=== PATIENT | female | born 1945 | race Asian ===

== ENCOUNTER 2017-07-26 20:35 | Inpatient (IN) | payer MEDICARE, MEDICAID ==
[~2017-07-26] VITALS: Ht 157.5 cm; Wt 54.4 kg
[2017-07-26 20:50] VITALS: BP 169/82
[2017-07-26 21:23] LABS: BASOPHILS % (AUTO) 0.9 % (0.0-2.0); EOSINOPHILS % (AUTO) 0.3 % (0.0-3.0); LYMPHOCYTES % (AUTO) 16.4 % (20.0-45.0); MEAN CORPUSCULAR HEMOGLOBIN 33.6 PG (27.0-31.0); MEAN CORPUSCULAR HGB CONC 34.3 G/DL (32.0-36.0); MEAN CORPUSCULAR VOLUME 98 FL (80-99); MEAN PLATELET VOLUME 5.4 FL (6.5-10.1); MONOCYTES % (AUTO) 6.8 % (1.0-10.0); NEUTROPHILS % (AUTO) 75.8 % (45.0-75.0); PLATELET COUNT 296 K/UL (150-450); RED BLOOD COUNT 2.96 M/UL (4.20-5.40); RED CELL DISTRIBUTION WIDTH 15.1 % (11.6-14.8); WHITE BLOOD COUNT 8.1 K/UL (4.8-10.8)
[2017-07-26 21:51] LABS: TROPONIN I < 0.30 ng/mL (<=0.30)
[2017-07-26 21:54] LABS: ALANINE AMINOTRANSFERASE 9 U/L (3-33); ALBUMIN/GLOBULIN RATIO 1.2 (1.0-2.7); ANION GAP 16 (5-15); ASPARTATE AMINO TRANSFERASE 25 U/L (5-40); CALCIUM 11.5 mg/dL (8.6-10.2); CARBON DIOXIDE 21 mEQ/L (20-30); CHLORIDE 97 mEQ/L (98-107); CREATININE 5.7 mg/dL (0.5-0.9); HEMOLYSIS 57; POTASSIUM 3.5 mEQ/L (3.4-4.9); SODIUM 134 mEQ/L (135-145); TOTAL PROTEIN 7.1 g/dL (6.6-8.7)
[2017-07-26 22:05] LABS: CKMB < 1.5 ng/mL (< 3.8)
[2017-07-26 22:20] LABS: REFLEX LACTIC ACID YES OR NO YES
[2017-07-26] MEDS ORDERED: TRAMADOL HCL50 MG ORAL (22:45)
[2017-07-26] MEDS ORDERED: CLOPIDOGREL75 MG ORAL (22:45)
[2017-07-26] MEDS ORDERED: AMBIEN5 MG ORAL (22:45)
[2017-07-26] MEDS ORDERED: MECLIZINE HCL25 MG ORAL (22:45)
[2017-07-26] MEDS ORDERED: FERROUS SULFAT325 M2 ORAL (22:45)
[2017-07-26] MEDS ORDERED: DOCUSATE SODIU100 M2 ORAL (22:45)
[2017-07-26] MEDS ORDERED: GLIMEPIRIDE1 MG ORAL (22:45)
--- NOTE | 2017-07-26 22:45 | Emergency Room Report ---
History of Present Illness General Chief Complaint: Abnormal Labs Source: Medical Record Present Illness HPI 72-year-old female presents to ED for evaluation. Patient resides in long-term and was found to be altered. Accu-Chek was in the 40s. Patient was given glucagon. Patient is now more awake and alert. Patient is a diabetic. Patient states she feels okay. Fevers or chills. Denies chest pain shortness of breath. Patient gets dialysis. No other aggravating or relieving factors. Denies any other associated symptoms Allergies: Coded Allergies: No Known Allergies (Unverified , 07/26/17) Patient History Past Medical History: DM, HTN, renal disease, dialysis Pertinent Family History: none Social History: Denies: smoking, alcohol use, drug use Now: No Immunizations: UTD Reviewed Nursing Documentation: PMH: Agreed, PSxH: Agreed Nursing Documentation-PMH Past Medical History: No History, Except For Hx Hypertension: Yes - dialysis R shunt T, TH, S Hx Diabetes: Yes Review of Systems All Other Systems: negative except mentioned in HPI Physical Exam Vital Signs Date Time Temp Pulse Resp B/P (MAP) Pulse Ox O2 Delivery O2 Flow Rate FiO2 07/26/17 20:23 98 16 192/84 100 Room Air 07/26/17 20:50 97.8 Sp02 EP Interpretation: reviewed, normal General Appearance: no apparent distress, alert, GCS 15, non-toxic Head: normocephalic, atraumatic Eyes: bilateral eye normal inspection, bilateral eye PERRL ENT: hearing grossly normal, normal pharynx, no angioedema, normal voice Neck: full range of motion, supple/symm/no masses Respiratory: chest non-tender, lungs clear, normal breath sounds, speaking full sentences Cardiovascular #1: regular rate, rhythm, no edema Cardiovascular #2: 2+ carotid (R), 2+ carotid (L), 2+ radial (R), 2+ radial (L) , 2+ dorsalis pedis (R), 2+ dorsalis pedis (L) Gastrointestinal: normal bowel sounds, non tender, soft, non-distended, no guarding, no rebound Rectal: deferred Genitourinary: normal inspection, no CVA tenderness Musculoskeletal: back normal, gait/station normal, normal range of motion, non- tender Neurologic: alert, oriented x3, responsive, motor strength/tone normal, sensory intact, speech normal Psychiatric: judgement/insight normal, memory normal, mood/affect normal, no suicidal/homicidal ideation Reflexes: 3+ bicep (R), 3+ bicep (L), 3+ tricep (R), 3+ tricep (L), 3+ knee (R) , 3+ knee (L) Skin: normal color, no rash, warm/dry, well hydrated Lymphatic: no adenopathy Medical Decision Making Diagnostic Impression: Primary Impression: Hypoglycemia Additional Impression: ESRD (end stage renal disease) on dialysis ER Course Hospital Course 72-year-old female presenting to ED with generalized weakness, low FS in field Differential diagnoses include: dehyration, sepsis, hypoglycemia Clinical course Patient placed on stretcher. On negative turner apprentice. After initial history and physical I ordered labs, food EKG- NSR, no acute changes interpreted by me CXR - cardiomegaly, no acute process Labs-glucose 43, Cr 5.7, K ok, no leukocytosis, hb/hct stable Despite glucagon and food, patient remains hypoglycemic. Patient given D50. Patient should be admitted Case discussed with Tom and he agreed to accept the patient to his service for further care and support i. I feel this is a highly complex case requiring extensive working including EKG/Rhythm strip, Xray/CT/US, Blood/urine lab work, repeat exams while in ED, and administration of strong opiates/narcotics for pain control, admission to hospital or close patient follow up. diagnosis - hypoglycemia, ESRD on dilaysis admitted to floor in serious condition Labs Test 07/26/17 21:01 07/26/17 21:11 White Blood Count 8.1 K/UL (4.8-10.8) Red Blood Count 2.96 M/UL (4.20-5.40) Hemoglobin 9.9 G/DL (12.0-16.0) Hematocrit 29.0 % (37.0-47.0) Mean Corpuscular Volume 98 FL (80-99) Mean Corpuscular Hemoglobin 33.6 PG (27.0-31.0) Mean Corpuscular Hemoglobin Concent 34.3 G/DL (32.0-36.0) Red Cell Distribution Width 15.1 % (11.6-14.8) Platelet Count 296 K/UL (150-450) Mean Platelet Volume 5.4 FL (6.5-10.1) Neutrophils (%) (Auto) 75.8 % (45.0-75.0) Lymphocytes (%) (Auto) 16.4 % (20.0-45.0) Monocytes (%) (Auto) 6.8 % (1.0-10.0) Eosinophils (%) (Auto) 0.3 % (0.0-3.0) Basophils (%) (Auto) 0.9 % (0.0-2.0) Sodium Level 134 mEQ/L (135-145) Potassium Level 3.5 mEQ/L (3.4-4.9) Chloride Level 97 mEQ/L (98-107) Carbon Dioxide Level 21 mEQ/L (20-30) Anion Gap 16 (5-15) Blood Urea Nitrogen 13 mg/dL (7-23) Creatinine 5.7 mg/dL (0.5-0.9) Estimat Glomerular Filtration Rate mL/min (>60) Glucose Level 43 mg/dL (74-106) Calcium Level 11.5 mg/dL (8.6-10.2) Total Bilirubin 0.3 mg/dL (0.0-1.2) Aspartate Amino Transf (AST/SGOT) 25 U/L (5-40) Alanine Aminotransferase (ALT/SGPT) 9 U/L (3-33) Alkaline Phosphatase 88 U/L (35-104) Total Creatine Kinase 47 U/L (26-140) Creatine Kinase MB < 1.5 ng/mL (< 3.8) Creatine Kinase MB Relative Index Troponin I < 0.30 ng/mL (<=0.30) Pro-B-Type Natriuretic Peptide 04223 pg/mL (0-125) Total Protein 7.1 g/dL (6.6-8.7) Albumin 3.9 g/dL (3.5-5.2) Globulin 3.2 g/dL Albumin/Globulin Ratio 1.2 (1.0-2.7) Lactic Acid Level 2.00 mmol/L (0.66-2.22) EKG Diagnostic Results Rate: normal Rhythm: NSR ST Segments: no acute changes ASA given to the pt in ED: No Rhythm Strip Diag. Results EP Interpretation: yes Rhythm: NSR, no PVC's, no ectopy Chest X-Ray Diagnostic Results Chest X-Ray Diagnostic Results : Chest X-Ray Ordered: Yes # of Views/Limited/Complete: 1 View Indication: Other - ams EP Interpretation: Yes Interpretation: no consolidation, no effusion, no pneumothorax, other - cardiomegaly Impression: Other - cardiomegaly Electronically Signed by: Electronically signed by Cruz Chance MD Last Vital Signs Date Time Temp Pulse Resp B/P (MAP) Pulse Ox O2 Delivery O2 Flow Rate FiO2 07/26/17 20:50 97.8 88 16 169/82 100 Room Air Status: improved Disposition: ADMITTED INPATIENT Condition: Serious Referrals: NON PHYSICIAN (PCP) CRUZ CHANCE M.D. Jul 26, 2017 22:44
[2017-07-26 22:50] VITALS: BP 172/70
[2017-07-26] MEDS ORDERED: ALOGLIPTIN6.25 MG PO (22:59)
[2017-07-26] MEDS ORDERED: VITAMIN D22000 UNIT PO (22:59)
[2017-07-26] MEDS ORDERED: VITAMIN D400 INTLU ORAL (22:59)
[2017-07-26] MEDS ORDERED: AMANTADINE50 MG/5 ML ORAL (22:59)
[2017-07-26] MEDS ORDERED: RENVELA0.8 GM ORAL (22:59)
[2017-07-26] MEDS ORDERED: RENA-VITE TABL0.8 M1 PO (22:59)
[2017-07-26] MEDS ORDERED: LOSARTAN POTASS25 M1 PO (22:59)
[2017-07-26] MEDS ORDERED: PANTOPRAZOLE SO20 MG ORAL (22:59)
[2017-07-26] MEDS ORDERED: Dextrose 10%/.45 SOD CHL 1,000 ML IV SCH ×2 (23:15)
[2017-07-26] MEDS ORDERED: Dextrose 10% 1,000 ML IV SCH (23:30)
[2017-07-27] VITALS (7 sets, daily range): BP systolic 109–195; BP diastolic 72–91
[2017-07-27] MEDS: Dextrose 10% 1,000 ML IV SCH ×2 (01:43→19:52)
[2017-07-27 07:20] LABS: BASOPHILS % (AUTO) 0.5 % (0.0-2.0); EOSINOPHILS % (AUTO) 0.5 % (0.0-3.0); LYMPHOCYTES % (AUTO) 23.4 % (20.0-45.0); MEAN CORPUSCULAR HEMOGLOBIN 32.9 PG (27.0-31.0); MEAN CORPUSCULAR HGB CONC 34.1 G/DL (32.0-36.0); MEAN CORPUSCULAR VOLUME 96 FL (80-99); MEAN PLATELET VOLUME 5.1 FL (6.5-10.1); MONOCYTES % (AUTO) 6.4 % (1.0-10.0); NEUTROPHILS % (AUTO) 69.2 % (45.0-75.0); PLATELET COUNT 268 K/UL (150-450); RED BLOOD COUNT 2.59 M/UL (4.20-5.40); WHITE BLOOD COUNT 10.1 K/UL (4.8-10.8)
[2017-07-27 07:35] LABS: ANION GAP 13 (5-15); CALCIUM 11.3 mg/dL (8.6-10.2); CARBON DIOXIDE 23 mEQ/L (20-30); CHLORIDE 97 mEQ/L (98-107); CREATININE 6.1 mg/dL (0.5-0.9); HEMOLYSIS 3; POTASSIUM 3.5 mEQ/L (3.4-4.9); SODIUM 133 mEQ/L (135-145)
[2017-07-27] MEDS: Heparin 5000 units/ml inj SUBQ SCH ×2 (08:21→20:32)
[2017-07-27 08:28] LABS: HEMOGLOBIN A1C 5.6 % (< 6.0)
--- NOTE | 2017-07-27 10:05 | Diagnostic Imaging Report ---
Indication: Cough Technique: One view of the chest Comparison: none Findings: The heart is borderline enlarged. The lungs and pleural spaces are clear except for a band of scarring or atelectasis in the left mid and upper lung. The aorta is calcified. There is an axillary venous stent on the right Impression: Cardio mainly No definite acute process
--- NOTE | 2017-07-27 16:45 | History and Physical Report ---
DATE OF ADMISSION: 07/26/2017 CHIEF COMPLAINT: Altered level of consciousness. History Of Present Illness: This is a 72-year-old female, who resides at [facility]. It is not clear where the patient gets her dialysis. She is on the schedule every Thursday, , and Thursday. The patient is on oral hypoglycemic agents. Her Accu-Chek were in the 40s. The patient was given glucagon in the field. The patient is a poor historian due to the language barrier. She speaks Urdu, but even in her own language she is confused. PAST MEDICAL HISTORY: 1. Type 2 diabetes mellitus. 2. End-stage renal failure on dialysis. 3. Glaucoma. Home Medications: Sodium docusate, Plavix, oral iron, zolpidem, meclizine, tramadol, Renvela, amantadine, vitamin B3, Protonix, alogliptin, Laura-Deanna, and losartan. ALLERGIES: No known drug allergies. FAMILY HISTORY: Unable to obtain secondary to mental status. SOCIAL HISTORY: Unable to obtain secondary to mental status. REVIEW OF SYSTEMS: Unable to obtain secondary to mental status. PHYSICAL EXAMINATION: GENERAL: This is an elderly female, who is in no acute distress. Vital Signs: Blood pressure 152/76, pulse 79 regular, respirations 20, and temperature 97.7. HEENT: The head is normocephalic and atraumatic. Pupils are equal, round, and reactive to light and accommodation consensually. Neck: Supple. Trachea midline. There was no lymphadenopathy or thyromegaly. LUNGS: Clear to auscultation and percussion. HEART: Regular rate and rhythm without rubs, murmurs, or gallops. ABDOMEN: Soft. Bowel sounds were active. Extremities: No clubbing, cyanosis, or edema. She has a well-functioning right upper arm AV fistula. NEUROLOGIC: She is confused. There were no gross focal findings. Laboratory And Ancillary Data: On admission, hematocrit 29, today 25. Serum chemistry on admission, sodium 134, potassium 3.5, BUN 13, creatinine 5.7, glucose 43, and calcium 11.5. Pro-brain natriuretic peptide 17,743. Troponin level is less than 0.3. Today, calcium 11.3, sodium 133, potassium 3.5, glucose 71 and this is on D10 IV. ASSESSMENT: 1. Multifactorial altered level of consciousness due to the patient's baseline organic brain syndrome with profound hypoglycemia due to longstanding oral hypoglycemic. This condition may last up to 72 hours. Contributing factors also hypercalcemia. 2. Type 2 diabetes mellitus. 3. End-stage renal failure on dialysis. 4. Glaucoma. PLAN: 1. Continue D10 infusion for 24 to 48 hours and monitor the patient's behavior. 2. Correct hypercalcemia with low calcium dialysis. 3. Hemodialysis every Thursday, , and Thursday. 4. Correct anemia. 5. Discussed with the patient's family. Nick Ashby M.D. DR: OLVIN JOB#: [id number] CC:
--- NOTE | 2017-07-27 19:03 | Cardiology Report ---
APPROVED REPORT EKG Measurement Heart [id number] Normal sinus rhythm Prolonged QT Abnormal ECG
[2017-07-27] MEDS: Epogen (for ESRD on dialysis) SUBQ SCH (20:49)
[2017-07-28] VITALS: BP 152/85
[2017-07-28 04:08] VITALS: BP 163/82
[2017-07-28 05:33] LABS: BASOPHILS % (AUTO) 0.8 % (0.0-2.0); EOSINOPHILS % (AUTO) 1.1 % (0.0-3.0); LYMPHOCYTES % (AUTO) 28.6 % (20.0-45.0); MEAN CORPUSCULAR HEMOGLOBIN 32.5 PG (27.0-31.0); MEAN CORPUSCULAR HGB CONC 33.8 G/DL (32.0-36.0); MEAN CORPUSCULAR VOLUME 96 FL (80-99); MEAN PLATELET VOLUME 5.6 FL (6.5-10.1); MONOCYTES % (AUTO) 7.2 % (1.0-10.0); NEUTROPHILS % (AUTO) 62.3 % (45.0-75.0); PLATELET COUNT 306 K/UL (150-450); RED BLOOD COUNT 2.78 M/UL (4.20-5.40); RED CELL DISTRIBUTION WIDTH 14.1 % (11.6-14.8); WHITE BLOOD COUNT 8.2 K/UL (4.8-10.8)
[2017-07-28] MEDS ORDERED: Heparin Sod 1000 units/ml 10ml IV PRN (06:00)
[2017-07-28 06:08] LABS: ALANINE AMINOTRANSFERASE 6 U/L (3-33); ALBUMIN/GLOBULIN RATIO 1.1 (1.0-2.7); ANION GAP 16 (5-15); ASPARTATE AMINO TRANSFERASE 14 U/L (5-40); CALCIUM 9.3 mg/dL (8.6-10.2); CARBON DIOXIDE 21 mEQ/L (20-30); CHLORIDE 98 mEQ/L (98-107); CREATININE 7.2 mg/dL (0.5-0.9); HEMOLYSIS 2; PHOSPHORUS 1.8 mg/dL (2.5-4.8); POTASSIUM 3.9 mEQ/L (3.4-4.9); SODIUM 135 mEQ/L (135-145); TOTAL PROTEIN 6.2 g/dL (6.6-8.7)
[2017-07-28 08:00] VITALS: BP 142/76
[2017-07-28] MEDS: Heparin 5000 units/ml inj SUBQ SCH ×2 (09:48→20:52)
--- NOTE | 2017-07-28 10:32 | Nephrology Progress Note ---
Assessment/Plan Plan Hypoglycemia due to oral hypoglycemic agents. Their half life is very long in HD patients as exemplified by this patient. May last 72 hours. This patient even on D10W her BG is 65! Continue IV dextrose. Hypercalcemia resolved. ESRD - had HD today. The main issue is to prevent her from resuming her old meds. I have discussed this with her Grand Daughter yesterday. Subjective Subjective Very confused even in Frisian - with Frisian speaking RN. denies pain. Had HD earlier. Objective Objective Last 24 Hour Vital Signs Date Time Temp Pulse Resp B/P (MAP) Pulse Ox O2 Delivery O2 Flow Rate FiO2 07/28/17 08:00 98.2 90 20 142/76 95 Room Air 07/28/17 04:08 97.5 94 20 163/82 95 Room Air 94 07/28/17 03:56 Room Air 07/28/17 03:47 Room Air 07/28/17 00:00 98.2 86 20 152/85 97 Room Air 86 07/27/17 20:45 98.1 91 20 168/91 97 Room Air 91 07/27/17 16:00 97.2 91 20 195/82 97 Room Air 07/27/17 12:00 97.9 82 20 164/76 97 Room Air Laboratory Tests 07/28/17 02:30: White Blood Count 8.2, Red Blood Count 2.78L, Hemoglobin 9.0L, Hematocrit 26.7L , Mean Corpuscular Volume 96, Mean Corpuscular Hemoglobin 32.5H, Mean Corpuscular Hemoglobin Concent 33.8, Red Cell Distribution Width 14.1, Platelet Count 306, Mean Platelet Volume 5.6L, Neutrophils (%) (Auto) 62.3, Lymphocytes ( %) (Auto) 28.6, Monocytes (%) (Auto) 7.2, Eosinophils (%) (Auto) 1.1, Basophils (%) (Auto) 0.8, Sodium Level 135, Potassium Level 3.9, Chloride Level 98, Carbon Dioxide Level 21, Anion Gap 16H, Blood Urea Nitrogen 20, Creatinine 7.2H , Estimat Glomerular Filtration Rate , Glucose Level 65L, Calcium Level 9.3, Phosphorus Level 1.8L, Total Bilirubin 0.5, Aspartate Amino Transf (AST/SGOT) 14 , Alanine Aminotransferase (ALT/SGPT) 6, Alkaline Phosphatase 81, Total Protein 6.2L, Albumin 3.3L, Globulin 2.9, Albumin/Globulin Ratio 1.1, Hepatitis B Surface Antibody [Pending], Hepatitis C Antibody [Pending] Height (Feet): 5 Height (Inches): 2.00 Weight (Pounds): 120 Objective CV RR Lungs CTa Abd SNT. Bs + E No CCE. DIANA AVF + bruit. Neuro Alert, confused nonfocal. CORA CHISHOLM Jul 28, 2017 10:32
[2017-07-28 12:00] VITALS: BP 159/80
[2017-07-28] MEDS: Dextrose 10% 1,000 ML IV SCH (15:15)
[2017-07-28 15:52] VITALS: BP 156/89
[2017-07-28 21:00] VITALS: BP 153/72
[2017-07-29] VITALS: BP 157/75
[2017-07-29 04:00] VITALS: BP 154/74
[2017-07-29] MEDS: Dextrose 10% 1,000 ML IV SCH (04:35)
[2017-07-29 08:00] VITALS: BP 147/77
[2017-07-29] MEDS: Heparin 5000 units/ml inj SUBQ SCH (09:00)
--- NOTE | 2017-07-29 11:47 | Nephrology Progress Note ---
Assessment/Plan Plan Hypoglycemia due to oral hypoglycemic agents. Their half life is very long in HD patients as exemplified by this patient. May last 72 hours. This patient even on D10W her BG was 65. DC IVF. DC to [facility]. DW pt' grand daughter Bernadine Thompson [phone] Hypercalcemia resolved. ESRD - had HD yesterday. Subjective Subjective Very confused even in Spanish - with Spanish speaking RN. denies pain. Had HD yesterday. More alert. Objective Objective Last 24 Hour Vital Signs Date Time Temp Pulse Resp B/P (MAP) Pulse Ox O2 Delivery O2 Flow Rate FiO2 07/29/17 08:00 97.6 92 20 147/77 97 Room Air 07/29/17 04:00 98.1 89 18 154/74 96 Room Air 07/29/17 00:00 97.7 87 20 157/75 96 Room Air 07/28/17 21:00 97.3 89 22 153/72 94 Room Air 07/28/17 15:52 98.0 82 21 156/89 99 Room Air 07/28/17 12:00 98.2 90 20 159/80 97 Room Air Height (Feet): 5 Height (Inches): 2.00 Weight (Pounds): 120 Objective CV RR Lungs CTa Abd SNT. Bs + E No CCE. DIANA AVF + bruit. Neuro Alert, confused nonfocal. CORA CHISHOLM Jul 29, 2017 11:47
[2017-07-29 12:00] VITALS: BP 165/85
--- NOTE | 2017-07-29 14:30 | Physician Query ---
PLEASE COMPLETE DOCUMENT BEFORE SIGNING Dear Dr. Nick sAhby Date: July Nuclear Control Room Operator/CDS Name: Radha Vasquez CCDS Nuclear Control Room Operator / CDS Exercise your independent professional judgment when responding to query. Question asked do not imply a particular answer is desired/expected. Clinical Documentation States: "Altered Level Of Consciousness" documented in the H/P of Dr. Nick Hamilton. Multifactorial altered level of consciousness due to the patient's baseline organic brain syndrome with profound hypoglycemia due to longstanding oral hypoglycemic. This condition may last up to 72 hours. Contributing factors also hypercalcemia /Type 2 diabetes mellitus. Clinical Findings Show: Glucose= 43 mg/dl,71mg/dl,43/dl Calcium= 11.3 mg/dl NEUROLOGIC: She is confused. There were no gross focal findings. Please indicate the nature and chronicity of the condition below: [] Metabolic Encephalopathy [] Toxic Encephalopathy [] Toxic - Metabolic Encephalopathy [] Progressive Encephalopathy [] Encephalopathy, Other [] Other: AMS due to hypoglycemia [] Not Applicable Severity [x] Acute [] Chronic [] Acute on Chronic [] Unable to determine Condition Present on Admission: [] Yes [] No []Clinically Undeterminable Please also document in your Progress Notes and/or Discharge Summary and indicate if the condition was present on admission. MTDD
[2017-07-29 16:00] VITALS: BP 140/79
[2017-07-29] MEDS ORDERED: LOSARTAN POTASS50 MG ORAL (16:59)
[2017-07-29] MEDS ORDERED: TYLENOL EXTRA500 MG ORAL (17:00)
[2017-07-29] MEDS: Epogen (for ESRD on dialysis) SUBQ SCH (18:15)
--- NOTE | 2017-07-31 08:40 | Discharge Summary ---
Discharge Summary Hospital Course Date of Admission Jul 26, 2017 at 22:13 Date of Discharge Jul 29, 2017 at 19:10 Admitting Diagnosis hypoglycemia HPI Charles Willis is a 72 year old female who was admitted on Jul 26, 2017 at 22:13 for Hypoglycemia Hospital Course [id number] Discharge Discharge Disposition Patient was discharged to Assisted Living Discharge Diagnoses: Mia Kumari NP Jul 31, 2017 08:40
--- NOTE | 2017-08-01 02:45 | Discharge Summary 2 SIG ---
DATE OF ADMISSION: 07/26/2017 DATE OF DISCHARGE: 07/29/2017 Brief Hospital Course: The patient is a 72-year-old female, who resides at [facility], not clear where the patient gets her dialysis, she is scheduled every Thursday, , and Thursday. The patient is on oral hypoglycemic agents and Accu-Cheks were noted to be 40s. The patient was given glucagon in the field and on admission, glucose was 43, troponin was negative, calcium 11.3, sodium was 133, and potassium 3.5. She was started on D10 IV and was admitted for multifactorial altered level of consciousness due to the patient's baseline organic brain syndrome with profound hypoglycemia. She was continued on inpatient hemodialysis. Hypercalcemia resolved. Blood glucose had a better control. She was given Procrit for anemia and she was eventually discharged back to [facility]. Her oral hypoglycemic agents have been discontinued, and the patient's grand daughter was made responsible. The patient was kept on D10W for more than 72 hours until the problem was resolved. She was given a new Rx and the Board and Care was notified. FINAL DIAGNOSES: 1. Hypoglycemia due to oral hypoglycemic agents. 2. Altered mental status/acute metabolic encephalopathy due to the patient's baseline organic brain syndrome with profound hypoglycemia. 3. Hypercalcemia. 4. Type 2 diabetes mellitus. 5. End-stage renal disease, on hemodialysis. 6. Glaucoma. 7. Polypharmacy. DISPOSITION: The patient was discharged back to [facility] living. DISCHARGE MEDICATIONS: Refer to med list. FOLLOWUP: The patient was advised to follow up with PMD in a week. ACTIVITY: As tolerated. Nick Ashby M.D. I have been assigned to dictate discharge summary on this account and I was not involved in the patient's management. Mia Kumari N.P. DR: DALILA JOB#: [id number] CC: SUGEY
== END 2017-07-29 19:10 | disposition home or self-care (01) | DRG 637 ==
LOC: EDBD 20:35 → EMR 22:05 → 4E 22:13 → EDBEDREQ 07-27 00:25
PROC: 5A1D00Z (ICD-10-PCS; principal; 2017-07-28)
DX: E11.649 Type 2 diabetes mellitus with hypoglycemia without coma (principal); G93.41 Metabolic encephalopathy; I12.0 Hypertensive chronic kidney disease with stage 5 chronic kidney disease or end stage renal disease; N18.6 End stage renal disease; E83.52 Hypercalcemia; Z99.2 Dependence on renal dialysis; Z79.84 Long term (current) use of oral hypoglycemic drugs; H40.9 Unspecified glaucoma; F09 Unspecified mental disorder due to known physiological condition; Z79.02 Long term (current) use of antithrombotics/antiplatelets
CPT/HCPCS: 36415; 71010; 80048; 80053; 82550; 82553; 82962; 83036; 83605; 83880; 84100; 84484; 85025; 86803; 87040; 87081; 87517; 93005; 99285